=== PATIENT | male | born 1965 | race Caucasian/White ===

== ENCOUNTER 2016-11-12 22:48 | Emergency (ER) | payer OTHER ==
[2016-11-12] MEDS ORDERED: ACETAMINOPHEN 500 MG TAB ONE (23:16)
[2016-11-12] MEDS ORDERED: ACETAMINOPHEN 500 MG TAB PO ONE (23:17)
[2016-11-12 23:44] LABS: % IMMATURE GRANULYOCYTES 0.3 % (0.0-1.1); ABSOLUTE IMMATURE GRANULOCYTES 0.02 10^3/uL (0.00-0.10); ADD DIFF? NO; ADD MORPH? NO; ADD SCAN? NO; ATYPICAL LYMPHOCYTE FLAG 0 (0-99); FRAGMENT RBC FLAG 0 (0-99); HEMATOCRIT 50.1 % (40.0-51.0); HEMOGLOBIN 17.4 g/dL (13.7-17.5); LEFT SHIFT FLG 0 (0-99); LIPEMIA HEMOLYSIS FLAG 90 (0-99); MEAN CELL HEMOGLOBIN 30.2 pg (27.9-34.1); MEAN CELL HEMOGLOBIN CONCENTR. 34.7 g/dL (32.4-36.7); MEAN CELL VOLUME 86.8 fL (81.5-99.8); MEAN PLATELET VOLUME 11.2 fL (8.7-11.7); PLATELET CLUMPS FLAG 0 (0-99); PLATELET COUNT 206 10^3/uL (150-400); RED BLOOD CELL COUNT 5.77 10^6/uL (4.40-6.38); RED CELL DISTRIBUTION WIDTH 12.4 % (11.5-15.2)
[2016-11-12 23:52] LABS: ANION GAP 13 mEq/L (8-16); CALCIUM 9.5 mg/dL (8.5-10.4); CARBON DIOXIDE 28 mEq/l (22-31); CHLORIDE 100 mEq/L (97-110); CREATININE 0.9 mg/dL (0.7-1.3); GLOMERULAR FILTRATION RATE > 60; GLUCOSE 192 mg/dL (70-100); POTASSIUM 3.8 mEq/L (3.5-5.2); SODIUM 141 mEq/L (134-144)
[2016-11-13] MEDS ORDERED: NS 1,000 ML IV ONE (00:26)
--- NOTE | 2016-11-13 00:38 | EDPHY ---
General - History Smoking Status: Never smoked Narrative: CHIEF COMPLAINT: flu like symptoms HISTORY OF PRESENT ILLNESS: Sudden onset of fever, headache, nausea, sore throat, cough and body aches. This all started abruptly Saturday morning. Symptoms have been persistent and steadily worsening. No predictable exacerbating factors. Some improvement with ibuprofen. No chest pain at rest but is dry cough is painful. He has some nausea but no vomiting. No abdominal pain. No diarrhea or constipation. No other associated complaints or modifying factors. Patient is diabetic on Humalog pump with reportedly normal blood glucose recently. REVIEW OF SYSTEMS: Ten systems reviewed and are negative unless otherwise noted in the HPI PERTINENT MEDICAL HISTORY: Insulin-dependent diabetic EXAMINATION General Appearance: Alert, no distress, diaphoretic Head: normocephalic, atraumatic Eyes: Pupils equal and round, no conjunctival pallor or injection. EOMs intact. ENT, Mouth: Mucous membranes moist. Uvula midline. No erythema or edema. Neck: Normal inspection, supple, non-tender. No nuchal rigidity. Negative Brudzinski. Negative Kernig. Respiratory: Lungs are clear to auscultation. No wheezing, rhonchi or crackles. Cardiovascular: Regular rate and rhythm. No murmur. Pulses intact distally. Gastrointestinal: Abdomen is soft and nontender. No tympany rigidity. No CVA tenderness. Back: non-tender, no bony abnormalities Neurological: A&O, nonfocal, normal gait. Strength symmetric in all limbs. Skin: Warm and dry, no rash. No petechiae or purpura. Extremities: Nontender, no pedal edema Psychiatric: Mood and affect normal DIFFERENTIAL DIAGNOSES: Including but not limited to influenza, viral illness, enteritis, bronchitis, pneumonia MDM: 12:33 a.m. Flu-like symptoms by complaint and examination. The patient is febrile and tachycardic at time of arrival, but his pulses come down to 80 with 1 L IV fluid. He has no chest pain at rest. CBC is unremarkable. Chest x-ray does not show any pneumonia. Examination reveals no abnormal auscultation, no pharyngitis. His abdominal exam is benign. I do feel that he has influenza or other viral illness. He is a diabetic on insulin pump with control glucose by his report. He is in no acute distress and feeling better since time of arrival. He was reportedly 90% on a room air time of arrival. 1:03 a.m. Patient has been off oxygen for 30 minutes without any hypoxia. He is resting comfortably and feeling better since time of arrival. His tachycardia is resolved. His blood pressure is normal. His flu swab is pending at this time. The plan for discharge home and I have started Tamiflu as he is a diabetic patient. He is to continue Tamiflu starting tomorrow, and he will be discharged home with Zofran ODT as needed. Contact primary care physician 1st thing in the morning. Return to the ER for any worsening symptoms, shortness of breath or lightheadedness. He and his family member are comfortable with this plan. SUPERVISION: This patient was independently evaluated without direct examination by the attending physician. Case was discussed with attending physician. Case discussed with (MoraZac) Medical Decision Making: PHYSICIAN DOCUMENTATION: The patient was evaluated and managed by the Physician Bone Density Technician. My co- signature indicates that I have reviewed this chart and I agree with the findings and plan of care as documented. I am the secondary supervising physician. (Lady Smith) - Objective Vital Signs: Initial Vital Signs Temperature (C) 37.3 C 11/12/16 22:50 Heart Rate 119 H 11/12/16 22:50 Respiratory Rate 18 11/12/16 22:50 Blood Pressure 137/99 H 11/12/16 22:50 O2 Sat (%) 90 L 11/12/16 22:50 O2 Delivery Mode Room Air Allergies/Adverse Reactions: No Known Allergies Allergy (Unverified 11/12/16 22:54) Home Medications: Medication Instructions Recorded Insulin Lis Humalog 75/25 09/17/09 LANSOPRAZOLE [Prevacid] 30 mg PO DAILY #30 09/17/09 Lisinopril 09/17/09 Zoloft 09/17/09 Simvastatin 80 mg PO 11/12/16 Ondansetron Odt [Zofran Odt 4 mg 4 mg PO Q6 PRN #12 tab 11/13/16 (*)] Oseltamivir Phosphate [Tamiflu 75 75 mg PO BID #10 cap 11/13/16 mg (*)] Laboratory Results: Laboratory Results 11/12/16 23:30 11/12/16 23:30 11/13/16 11/12/16 11/12/16 00:30 23:30 23:30 WBC 7.32 10^3/uL 10^3/uL (3.80-9.50) RBC 5.77 10^6/uL 10^6/uL (4.40-6.38) Hgb 17.4 g/dL g/dL (13.7-17.5) Hct 50.1 % % (40.0-51.0) MCV 86.8 fL fL (81.5-99.8) MCH 30.2 pg pg (27.9-34.1) MCHC 34.7 g/dL g/dL (32.4-36.7) RDW 12.4 % % (11.5-15.2) Plt Count 206 10^3/uL 10^3/uL (150-400) MPV 11.2 fL fL (8.7-11.7) Neut % (Auto) 74.7 % H % (39.3-74.2) Lymph % (Auto) 10.1 % L % (15.0-45.0) [place] % (Auto) 11.2 % % (4.5-13.0) Eos % (Auto) 3.0 % % (0.6-7.6) Baso % (Auto) 0.7 % % (0.3-1.7) Nucleat RBC Rel Count 0.0 % % (0.0-0.2) Absolute Neuts (auto) 5.47 10^3/uL 10^3/uL (1.70-6.50) Absolute Lymphs (auto) 0.74 10^3/uL L 10^3/uL (1.00-3.00) Absolute Monos (auto) 0.82 10^3/uL H 10^3/uL (0.30-0.80) Absolute Eos (auto) 0.22 10^3/uL 10^3/uL (0.03-0.40) Absolute Basos (auto) 0.05 10^3/uL 10^3/uL (0.02-0.10) Absolute Nucleated RBC 0.00 10^3/uL 10^3/uL (0-0.01) Immature Gran % 0.3 % % (0.0-1.1) Immature Gran # 0.02 10^3/uL 10^3/uL (0.00-0.10) Sodium 141 mEq/L mEq/L (134-144) Potassium 3.8 mEq/L mEq/L (3.5-5.2) Chloride 100 mEq/L mEq/L (97-110) Carbon Dioxide 28 mEq/l mEq/l (22-31) Anion Gap 13 mEq/L mEq/L (8-16) BUN 14 mg/dL mg/dL (7-23) Creatinine 0.9 mg/dL mg/dL (0.7-1.3) Estimated GFR > 60 Glucose 192 mg/dL H mg/dL (70-100) Calcium 9.5 mg/dL mg/dL (8.5-10.4) Influenza A & B (PCR) POSITIVE FOR FLU A H (NEGATIVE) Medications Given: Discontinued Medications Acetaminophen (Tylenol) 1,000 mg PO EDNOW ONE Stop: 11/12/16 23:18 Last Admin: 11/12/16 23:25 Dose: 1,000 mg Sodium Chloride (Ns) 1,000 mls @ 0 mls/hr IV ONCE ONE PRN Reason: Wide Open Stop: 11/13/16 00:27 Last Admin: 11/13/16 00:27 Dose: 1,000 mls Ondansetron HCl (Zofran Odt 4 Mg Prepack#2) 1 btl TAKEHOME EDNOW ONE Stop: 11/13/16 01:06 Last Admin: 11/13/16 01:09 Dose: 1 btl Oseltamivir Phosphate (Tamiflu) 75 mg PO EDNOW ONE Stop: 11/13/16 00:55 Last Admin: 11/13/16 00:59 Dose: 75 mg Departure - Departure Disposition: Home, Routine, Self-Care Clinical Impression: Flu-like symptoms, Insulin dependent diabetes mellitus Acute bronchitis Qualifiers: Bronchitis organism: unspecified organism Qualified Code(s): J20.9 - Acute bronchitis, unspecified Condition: Good Instructions: Ondansetron (By mouth), Influenza (ED) Additional Instructions: Increase fluid intake, rest, monitor blood glucose closely. Follow up with primary care physician on Saturday or Saturday. Return to the ER for persistent symptoms, shortness of breath or lightheadedness Referrals: Deondre Arrieta, [Primary Care Provider] - As per Instructions Stand Alone Forms: Work Excuse Prescriptions: Ondansetron Odt [Zofran Odt 4 mg (*)] 4 mg PO Q6 PRN #12 tab PRN Reason: Nausea/Vomiting, Use 1st Oseltamivir Phosphate [Tamiflu 75 mg (*)] 75 mg PO BID #10 cap
[2016-11-13] MEDS ORDERED: OSELTAMIVIR PHOSPHATE 75 MG CAP PO ONE (00:54)
[2016-11-13] MEDS ORDERED: ONDANSETRON 4MG PREPACK#2 BTL TAKEHOME ONE (01:05)
[2016-11-13 01:35] VITALS: BP 101/69; PULSE 70; RESP 16; TEMP 98.6; O2SAT 91
== END 2016-11-13 01:25 | disposition home or self-care (01) ==
DX: J10.1 Influenza due to other identified influenza virus with other respiratory manifestations (principal); E11.9 Type 2 diabetes mellitus without complications; J20.9 Acute bronchitis, unspecified; Z79.4 Long term (current) use of insulin